=== PATIENT | male | born 1985 | race Hispanic/Latino ===

== ENCOUNTER 2016-10-16 21:26 | Emergency (ER) | payer OTHER ==
[~2016-10-16] VITALS: Ht 160 cm; Wt 79.5 kg
--- NOTE | 2016-10-16 21:32 | ED.REPORT ---
HPI-Psychiatric Illness Date of Service Oct 16, 2016 ED Provider: Ravi Jalloh MD Patient is a 31 year old male with a history of OCD and alcohol abuse who is brought to the ED by [employer] after the patient threatened to commit suicide this evening. Per PD report, they were called to the patient's home tonight because the patient was sitting on the edge of a second story window threatening to jump and "end it all". He was going to jump head first onto concrete. His father stated that the patient has threatened to commit suicide in the past, but this was the first time he took action towards doing so. His father stated that the patient was referred to a mental health evaluation in the past while being treated for his alcohol abuse, but to his knowledge had not followed through. PD asked the patient if he had plans to hurt himself and the patient became very vague. He declined mental health evaluation and was ultimately brought to the ED against his will. On arrival to the ED he patient denies threatening to harm or kill himself. Patient denies previously trying to commit suicide. The patient states that he was brought here tonight after an argument with his parents. Like all families, people sometimes get into arguments. The patient is currently living with his parents and is unemployed. The patient was previously on medication for his OCD but denies taking any psychiatric medications at this time. The patient states that he drinks alcohol daily and admits that he drank alcohol earlier this evening. Patient denies abdominal pain or any other physical complaints. He denies smoking cigarettes or marijuana. His PCP is Dr. Reyes. Patient denies any medical complaints at this time. Nursing Notes Stated Complaint: SUICIDAL IDEATION Chief Complaint: Psychiatric Complaint Nursing Notes Reviewed: Yes Allergies: Coded Allergies: No Known Allergies (Unverified , 10/16/16) General Time Seen by MD: 21:26 Chief Complaint Suicidal ideation Hx Obtained From: Patient, Police Arrived By: Police Onset Occurred: Just prior to arrival Severity: Current: No pain currently Severity: Maximum: No pain Recent Healthcare: No recent doctor visit, No recent hospitalization Similar Sx Previous: No Risk-Psychiatric Illness Suicide Risk Stratification Suicide Risk Factors - Adult: : Alcohol useNo: Previous attempt, Prior psych admission, Substance abuse RF Statements: Risk factors reviewed Past Medical History Past Medical History Notes: Abdominal US January 2016: IMPRESSION: 1. Nonspecific hepatomegaly. 2. Increased hepatic echogenicity and coarse sonographic echotexture likely represent steatosis. Dictated by: Jaun Peoples M.D. on 01/12/2016 at 11:15 Approved by: Jaun Peoples M.D. on 01/12/2016 at 11:15 Past Medical History OCD alcohol abuse Past Surgical History none reported Smoking History Never Smoker Social History Alcohol Use: >5 per day Drug Use: Denies drug use Other Social History: Good social support, Lives with parents, Local resident Ambulatory Status Independent Review of Systems Constitutional: Denies: Chills, Fever Psychiatric: Reports: Depression, Suicidal ideation Complete sys rev & neg: except as marked. Physical Exam Initial Vital Signs Vital Signs (First) Date Time Temp Pulse Resp B/P Pulse Ox O2 Delivery O2 Flow Rate FiO2 10/16/16 21:37 36.7 100 18 155/89 96 Room Air Initial VS: Reviewed, Vital signs abnormal Head / Eyes: Atraumatic, Normocephalic, PERRL ENT: Conjunctiva normal, No scleral icterus Neck: Supple, Full range of motion Respiratory: Breath sounds normal, Clear to auscultation, No respiratory distress Cardiovascular: Regular rate & rhythm, Heart sounds normal Extremities: Vascular intact, Neuro intact, No swelling, No tenderness General/Constitutional: Awake, Alert, No acute distress Neurologic: Oriented X3, Speech NL, No motor deficits, No sensory deficits Psychiatric: Affect NL, Mood NL, Not suicidal Abnormal Mood/Affect: Negative: Flat affect Abdomen: Soft, Non-tender, No guarding, No rebound Organomegaly / Mass / Hernia: Negative: Hepatomegaly, Splenomegaly Skin: No rash, Warm, Dry Interpretation & Diagnostics Interpretation & Diagnostics: Breathalyzer at intake: 0.276 Urine Tox Screen: Negative Lab Results Interpretation Result Diagram: 10/16/16 2210 10/16/16 2210 Test 10/16/16 22:10 10/16/16 22:44 White Blood Count 3.5th/mm3 (3.8-10.1) Red Blood Count 4.63mil/mm3 (4.40-5.80) Hemoglobin 15.5g/dL (13.8-17.2) Hematocrit 44.5% (41.0-50.0) Mean Corpuscular Volume 96.1fL (81-100) Mean Corpuscular Hemoglobin 33.5pg (27.0-35.0) Mean Corpuscular Hemoglobin Concent 34.8% (32.0-37.0) Red Cell Distribution Width 12.4% (12.3-15.4) Platelet Count 149bil/L (150-400) Neutrophils (%) (Auto) 53.9% (40-74) Lymphocytes (%) (Auto) 37.5% (14-46) Monocytes (%) (Auto) 6.3% (4-12) Eosinophils (%) (Auto) 0.3% (0-5) Basophils (%) (Auto) 1.7% (0-3) Sodium Level 143mEq/L (134-144) Potassium Level 3.7mEq/L (3.5-5.2) Chloride Level 101mEq/L (97-108) Carbon Dioxide Level 21mmol/L (18-29) Blood Urea Nitrogen 7mg/dL (6-20) Creatinine 0.69mg/dL (0.76-1.27) Estimat Glomerular Filtration Rate 144mL/min (>59) Glucose Level 115mg/dL (60-99) Calcium Level 9.0mg/dL (8.5-10.1) Total Bilirubin 0.7mg/dL (0.0-1.2) Aspartate Amino Transf (AST/SGOT) 346U/L (0-50) Alanine Aminotransferase (ALT/SGPT) 176U/L (0-44) Alkaline Phosphatase 95U/L (25-150) Total Protein 7.9g/dL (6.4-8.4) Albumin 4.8g/dL (3.4-5.0) Lipase 35U/L (13-60) Thyroid Stimulating Hormone (TSH) 3.420uIU/mL (0.450-4.500) Hold Jim Top Tube Received (Received) Hold Urine Received (Received) Re-Eval/Medical Decision Med Decision/Clinical Course 31-year-old male who was in an argument at home. He went out on the ledge of a second story window and threatened to jump onto the concrete. He arrives here for evaluation. He is intoxicated at 0.276. His initial evaluation was done by me and his care will be turned over at change of shift to Dr. Torres. Re-Evaluation/Progress : Time of Eval: 04:45 Re-Evaluation/Progress Note: Patient continues to sleep comfortably. Counseled Regarding: Diagnosis Discharge & Departure Shift Change Sign-Out Patient Care Transferred: Yes Discussed Complaint(s): Yes Laboratory Evaluation: Back, reviewed by me Additonal Information: Awaiting [employer] evaluation. Impression: Primary Impression: Suicidal ideations Additional Impressions: Alcohol intoxication Complication of substance-induced condition: uncomplicated Qualified Code: F10.120 - Alcohol abuse with intoxication, uncomplicated Alcohol abuse Referrals: Marcie Reyes MD (PCP) Care Transferred to: Dr. Torres Care Transferred at: 06:00 Scribe Attestation Portions of this note were transcribed by Janine Emery. I, Dr. Jalloh personally performed the history, physical exam and medical decision-making; I reviewed and confirmed the accuracy of the information in the transcribed note. Signed by: Tati Erickson, 10/17/2016 0538 copies to: Marcie Reyes MD, Howard L MD Oct 16, 2016 21:32 Janine Emery Oct 16, 2016 21:40
[2016-10-16 21:37] VITALS: BP 155/89; PULSE 100; RESP 18; O2SAT 96
[2016-10-16 22:22] LABS: BASOPHILS % (AUTO) 1.7 % (0-3); EOSINOPHILS % (AUTO) 0.3 % (0-5); MONOCYTES % (AUTO) 6.3 % (4-12); Mean Corpuscular Hemoglobin 33.5 pg (27.0-35.0); Mean Corpuscular Volume 96.1 fL (81-100); NEUTROPHILS % (AUTO) 53.9 % (40-74); Platelet Count 149 bil/L (150-400)
[2016-10-17 05:31] VITALS: BP 124/77; PULSE 92; RESP 18; O2SAT 96
[2016-10-17 09:45] VITALS: BP 146/81; PULSE 90; RESP 16; O2SAT 96
[2016-10-17 11:37] VITALS: BP 146/81; PULSE 90; RESP 16; O2SAT 96
== END 2016-10-17 11:37 | disposition home or self-care (01) ==
LOC: SED 21:26
DX: R45.851 Suicidal ideations (principal); F10.120 Alcohol abuse with intoxication, uncomplicated

== ENCOUNTER 2016-11-25 22:02 | Emergency (ER) | payer MEDICAID, OTHER ==
[2016-11-25 22:41] VITALS: BP 161/104; PULSE 112; RESP 18; O2SAT 96
--- NOTE | 2016-11-25 23:04 | ED.REPORT ---
HPI-Psychiatric Illness Date of Service November 25, 2016 ED Provider: Dr. Topete Pt is a Citizen Of [place] speaking male with a history of alcohol abuse and OCD who presents to the ED via PD with concerns for suicidal ideation. His family called the police after they noticed that he had made a noose out of his bedsheet. Pt reports that he has been having issues with his family, and has been drinking alcohol tonight. He denies any history of or present SI, HI, or any other complaints. He reports a history of alcohol abuse, and has been going through withdrawals recently. He states he is withdrawing now, and indicates minimal tremor, but he is grossly intoxicated with a Alcohol level above 250 and is clearly not withdrawing at this point. Pt reports that he wishes to stop drinking, but is worried about addressing his OCD first. Nursing Notes Stated Complaint: SUICIDAL IDEATION Chief Complaint: Psychiatric Complaint Nursing Notes Reviewed: Yes Allergies: Coded Allergies: No Known Allergies (Unverified , 10/16/16) General Time Seen by MD: 23:03 Chief Complaint Depressed, Suicidal ideation Hx Obtained From: Patient Arrived By: Police Onset Occurred: Just prior to arrival Symptom Duration: Since onset Severity: Current: No pain currently Severity: Maximum: No pain Immunizations: Unknown Similar Sx Previous: Yes Risk-Psychiatric Illness Suicide Risk Stratification Suicide Risk Factors - Adult: : Alcohol use RF Statements: Risk factors reviewed Past Medical History Past Medical History Notes: Abdominal US January 2016: IMPRESSION: 1. Nonspecific hepatomegaly. 2. Increased hepatic echogenicity and coarse sonographic echotexture likely represent steatosis. Dictated by: Jaun Peoples M.D. on 01/12/2016 at 11:15 Approved by: Jaun Peoples M.D. on 01/12/2016 at 11:15 Past Medical History OCD alcohol abuse Past Surgical History none reported Smoking History Never Smoker Social History Alcohol Use: >5 per day Drug Use: Denies drug use Other Social History: Good social support, Lives with parents, Local resident Ambulatory Status Independent Review of Systems Constitutional: Denies: Chills, Fever, Malaise, Weakness - generalized Respiratory: Denies: Non-productive cough, Shortness of breath, Wheezing Cardiovascular: Denies: Chest pain GI: Denies: Abdominal pain Skin: Denies Diaphoresis Neurologic: Reports: Shaking, Denies: Change LOC, Headache Psychiatric: Reports: Depression, Denies: Homicidal ideation, Suicidal ideation Complete sys rev & neg: except as marked. Physical Exam Initial Vital Signs Vital Signs (First) Date Time Temp Pulse Resp B/P Pulse Ox O2 Delivery O2 Flow Rate FiO2 11/25/16 22:41 36.3 112 18 161/104 96 Room Air Initial VS: Reviewed Head / Eyes: Atraumatic, Normocephalic, PERRL ENT: Mucous membranes moist, Conjunctiva normal, No scleral icterus Neck: Supple, Non-tender, Full range of motion Respiratory: Breath sounds normal, Clear to auscultation, No respiratory distress Cardiovascular: Regular rate & rhythm, Heart sounds normal, Intact distal pulses Skin: Warm, Dry, No cyanosis General/Constitutional: Awake, Alert, Well appearing, Well nourished, Cooperative Intoxicated Tremulous Neurologic: Oriented X3, Speech NL, No sensory deficits Psychiatric: Affect NL, Mood NL, Not suicidal, Not homicidal, Judgment/insight NL, Thought content NL Abnormal Mood/Affect: Positive: Depressed Interpretation & Diagnostics Lab Results Interpretation Result Diagram: 11/26/16 0021 11/26/16 0021 Test 11/26/16 00:21 White Blood Count 4.1th/mm3 (3.8-10.1) Red Blood Count 4.68mil/mm3 (4.40-5.80) Hemoglobin 15.4g/dL (13.8-17.2) Hematocrit 43.2% (41.0-50.0) Mean Corpuscular Volume 92.3fL (81-100) Mean Corpuscular Hemoglobin 32.9pg (27.0-35.0) Mean Corpuscular Hemoglobin Concent 35.6% (32.0-37.0) Red Cell Distribution Width 12.1% (12.3-15.4) Platelet Count 138bil/L (150-400) Neutrophils (%) (Auto) 65.2% (40-74) Lymphocytes (%) (Auto) 29.2% (14-46) Monocytes (%) (Auto) 3.9% (4-12) Eosinophils (%) (Auto) 0.5% (0-5) Basophils (%) (Auto) 1.0% (0-3) Sodium Level 141mEq/L (134-144) Potassium Level 3.4mEq/L (3.5-5.2) Chloride Level 98mEq/L (97-108) Carbon Dioxide Level 23mmol/L (18-29) Blood Urea Nitrogen 3mg/dL (6-20) Creatinine 0.69mg/dL (0.76-1.27) Estimat Glomerular Filtration Rate 144mL/min (>59) Glucose Level 119mg/dL (60-99) Calcium Level 8.6mg/dL (8.5-10.1) Total Bilirubin 0.7mg/dL (0.0-1.2) Aspartate Amino Transf (AST/SGOT) 49U/L (0-50) Alanine Aminotransferase (ALT/SGPT) 26U/L (0-44) Alkaline Phosphatase 94U/L (25-150) Total Protein 7.8g/dL (6.4-8.4) Albumin 4.6g/dL (3.4-5.0) Thyroid Stimulating Hormone (TSH) 2.500uIU/mL (0.450-4.500) Hold Jim Top Tube Received (Received) Re-Eval/Medical Decision Med Decision/Clinical Course 31-year-old with chronic alcohol abuse, evidence of low-grade alcohol hepatitis, and depression associated with intoxication, presents after crashing and is to hang himself. He denies this, but family reports and there is a police affidavit. He is held awaiting sobriety so that he can be assessed by mental health professionals. Care endorsed to Dr. Vance Topete at 6 AM Source of Hx: Old records Counseled Regarding: Diagnosis, Lab results, When/why to return to ED Discharge & Departure Impression: Primary Impression: Alcohol abuse Additional Impressions: Suicidal ideations Alcohol intoxication Depression Substance abuse Disposition: Home Discharge Condition All VS Reviewed: Yes Condition: Stable Referrals: Marcie Reyes MD (PCP) Care Transferred to: Vance Topete Care Transferred at: 06:00 Jimmieibtrina Attestation Portions of this note were transcribed by Lynnette Nova. I, Dr. Topete personally performed the history, physical exam and medical decision-making; I reviewed and confirmed the accuracy of the information in the transcribed note. Signed by: Tati Sanders, 11/25/2016 [Time]. copies to: Marcie Reyes MD, Christopher W MD November 25, 2016 23:04 MARTIN NOVA November 25, 2016 23:30
[2016-11-25] MEDS ORDERED: LORazepam 2 mg Tablet PO ONE (23:40)
[2016-11-26 00:51] LABS: MONOCYTES % (AUTO) 3.9 % (4-12); Mean Corpuscular Hemoglobin 32.9 pg (27.0-35.0); Mean Corpuscular Volume 92.3 fL (81-100); NEUTROPHILS % (AUTO) 65.2 % (40-74); Platelet Count 138 bil/L (150-400)
[2016-11-26 00:52] LABS: EOSINOPHILS % (AUTO) 0.5 % (0-5)
[2016-11-26 06:28] VITALS: BP 114/69; PULSE 96; RESP 19; O2SAT 97
[2016-11-26 10:25] VITALS: BP 128/79; PULSE 114; RESP 16; O2SAT 97
[2016-11-26] MEDS ORDERED: LORazepam 1 mg Tablet PO ONE (10:35)
[2016-11-26 11:01] VITALS: PULSE 103; O2SAT 96
== END 2016-11-26 11:02 | disposition home or self-care (01) ==
LOC: SED 22:05
DX: F10.129 Alcohol abuse with intoxication, unspecified (principal); R45.851 Suicidal ideations; F32.9 Major depressive disorder, single episode, unspecified; F19.10 Other psychoactive substance abuse, uncomplicated